=== PATIENT | male | born 2000 | race Caucasian/White ===

== ENCOUNTER → 2023-02-06 | Outpatient (CLI) | payer OTHER, SELFPAY ==
--- NOTE | 2023-02-06 | CYST_PTH ---
PATHOLOGY RESULTS PATIENT: GIOVANI DINERO LOC: [facility] U#:[id number] AGE/SX: 22/M ROOM: RE02/06/[address]: Dr. Mauro Ordaz MD : 2000 BED: DIS: 02/06/2023 SPEC #: [id number] RECD: 02/07/23 06:57 STATUS: LEV CASIE #: [id number] SUNNY: 02/06/23 00:[address]: Mauro Ordaz DEPT: SURGICAL PATHOLOGY RECD BY: Milagro Walker ENTERED: 02/07/23 06:58 SP TYPE: Cyst OTHR DR: CINDY Tissues: CYST Procedures: Surgery Specimen Level III HEADER OPERATION: Left excision earlobe cyst PRE-OP DIAGNOSIS: Benign neoplasm of skin of left ear and external auricular canal TISSUE SUBMITTED: Left earlobe mass MICROSCOPIC DIAGNOSIS Left earlobe mass, excision: Epidermal inclusion cyst. AM:kristin 02/11/2023 COMMENT Case has been reviewed in consultation with Dr. Tobar who concurs with the above diagnosis. IDC:SJ MICROSCOPIC DESCRIPTION Slides are reviewed. GROSS DESCRIPTION Received in fixative is one container labeled with the patient's name and designated left earlobe mass. The specimen consists of a piece of anthony-white skin with underlying tissue measuring 1.0 x 0.4 cm and up to 0.7 cm in thickness. The specimen is inked and serially sectioned. Also present in the container is a minute piece of anthony-brown soft tissue measuring 0.1 cm in greatest dimension. The entire specimen is submitted in one cassette. / ALESSANDRO:kristin 02/07/2023 TC:5 CPT: 97477
== END | disposition home or self-care (01) ==
PROVIDERS: Referring Provider Otolaryngology; Visit Provider Otolaryngology
DX: D23.22 Other benign neoplasm of skin of left ear and external auricular canal (principal)
CPT/HCPCS: 88304

== ENCOUNTER → 2023-08-22 | Outpatient (CLI) | payer OTHER, SELFPAY ==
[2023-08-22 14:40] LABS: Absolute Lymphocyte Count 2.27 X10^3/uL (0.83-4.51); Basophil# 0.04 X10^3/uL; Basophil% 0.5 % (0-1); Eosinophil# 0.27 X10^3/uL; Eosinophils% 3.3 % (0-5); Hematocrit 39.4 % (40-54); Hemoglobin 13.8 g/dL (13.0-16.5); Lymphocyte # 2.27 X10^3/ul (0.83-4.51); Lymphocyte % 27.7 % (19-41); Mean Corpuscular Hgb 30.5 pg (27.0-32.0); Mean Platelet Vol. 9.4 fl (6.2-12.0); Monocyte% 7.3 % (0-10); NRBC Flagged by Analyzer 0 % (0-5); Neutrophil # 4.99 X10^3/uL (2.7-7.7); Neutrophil % 60.8 % (47-70); Platelet Count 206 K/mm3 (150-450); RBC Distribution Width CV 11.5 % (11.6-14.6); RBC Distribution Width SD 36.6 fl (35.1-43.9); Red Blood Count 4.53 M/mm3 (4.6-6.2); White Blood Count 8.2 K/mm3 (4.4-11.0)
[2023-08-22 15:04] LABS: Anion Gap 4 (5-15); BUN 27 mg/dL (7-18); BUN/Creat Ratio 24.1 RATIO (10-20); Calcium,Total 9.2 mg/dL (8.5-10.1); Chloride 104 mmol/L (98-107); Creatinine, Serum 1.12 mg/dL (0.70-1.30); EST Glomerular Filtration Rate 85 mL/min (>60); Est Glom Filt Rate - Afr Amer 103 mL/min (>60); Glucose 88 mg/dL (74-106); Potassium 3.7 mmol/L (3.5-5.1); Sodium Level 138 mmol/L (136-145)
== END | disposition home or self-care (01) ==
PROVIDERS: PCP Nurse Practitioner Family; Referring Provider Student in an Organized Health Care Education/Training Program; Visit Provider Student in an Organized Health Care Education/Training Program
DX: Z01.810 Encounter for preprocedural cardiovascular examination (principal)
CPT/HCPCS: 36415; 80048; 85025